=== PATIENT | male | born 1965 | race Caucasian/White ===

== ENCOUNTER 2021-07-13 13:23 | Emergency (ER) | payer OTHER, SELFPAY ==
[2021-07-13 13:32] VITALS: BP 119/64; PULSE 88; RESP 18; TEMP 37.7; O2SAT 99
--- NOTE | 2021-07-13 13:41 | ED_ITS ---
HPI - Fever General Chief Complaint: Fever Stated Complaint: Lethargic/Body Aches/Fever Time Seen by Provider: 07/13/21 13:31 Source: patient Mode of arrival: Ambulatory History of Present Illness HPI Narrative: Patient presents to the ED complaining of lethargy and fatigue for the past 7-10 days. He reports having loss of taste and smell over the last couple of days and states that he has body aches from head to toe. 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 He denies any shortness of breath cough congestion runny nose. He is not received his flu or COVID vaccine. 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 He has a history of ankylosing spondylitis and has is not currently seeing a neurologist. He states he does have some occasional leg symptoms and over the past week his back and legs have pain has increased. Related Data Allergies Allergy/AdvReac Type Severity Reaction Status Date / Time INGREDIENT: NKDA - NO KNOWN Allergy Unknown Uncoded 10/13/17 12:24 DRUG ALLERGIES Review of Systems Review of Systems ROS Unobtainable: All systems reviewed & are unremarkable except as noted in HPI and below Constitutional Constitutional: Reports body ache(s), Denies chills, Reports fatigue, Reports fever(s), Denies frequent falls, Denies lethargy and Denies weakness Eyes Eyes: Denies change in vision, Denies eye discharge, Denies irritation and Denies loss of vision ENT Ears, Nose, Mouth, and Throat: Denies change in voice, Denies dizziness, Denies neck pain, Denies sore throat and Denies throat swelling Cardiovascular Cardiovascular: Denies chest pain, Denies irregular heart rhythm, Denies lightheadedness, Denies palpitations, Denies dyspnea, Denies dyspnea on exertion and Denies orthopnea Respiratory Respiratory: Denies cough, Denies dyspnea, Denies dyspnea on exertion and Denies wheezing Gastrointestinal Gastrointestinal: Denies abdominal pain, Denies change in bowel habits, Denies diarrhea, Denies nausea and Denies vomiting Genitourinary Genitourinary: Denies hematuria, Denies flank pain, Denies urinary incontinence and Denies urinary urgency Musculoskeletal Musculoskeletal: Denies back pain, Denies muscle weakness, Denies neck pain, Denies numbness and Denies tingling Integumentary/Breasts Skin/Breast: Denies pruritus, Denies erythema, Denies rash and Denies wounds Neurologic Neurologic: Denies behavioral changes, Denies confusion, Denies dizziness, Denies frequent falls, Denies loss of vision, Denies numbness, Denies tingling and Denies weakness Psychiatric Psychiatric: Denies anxiety, Denies behavioral changes, Denies confusion, Denies depression, Denies homicidal ideation and Denies suicidal ideation Endocrine Endocrine: Reports fatigue, Denies flushing and Denies palpitations Hematologic/Lymphatic Hematologic/Lymphatic: Denies easy bruising Allergic/Immunologic Allergic/Immunologic: Denies urticaria, Denies throat swelling and Denies wheezing Exam Initial Vital Signs Initial Vital Signs: Vital Signs Temperature 99.9 F H 07/13/21 13:32 Pulse Rate 88 07/13/21 13:32 Respiratory Rate 18 07/13/21 13:32 Blood Pressure 119/64 07/13/21 13:32 Pulse Oximetry 99 07/13/21 13:32 Const General: cooperative and comfortable Orientation: Orientation [facility] Head: normal to inspection and normocephalic Nose: external nose normal Face and sinus: normal facial exam Mouth: oral mucosae normal Teeth and gingiva: dentition normal Throat: posterior oropharynx normal Eyes General: appearance normal, both eyes and all related structures Neck Neck: normal visual inspection Resp Effort & Inspection: normal respiratory effort and able to speak in complete sentences Auscultation: clear to auscultation bilaterally Cardio Rate: regular rate Rhythm: regular rhythm Skin General: no rashes or lesions noted Neuro General: patient alert, patient awake, patient oriented x3, normal light touch, pain and propioception, no meningeal signs, no focal motor deficits and CN's II- XI intact bilaterally Psych Appearance: grossly normal and well kempt Mental Status: mental status grossly normal Course Orders Ordered: ED Orders 07/13/21 13:55 COVID19 - ADMIT (INSTRUMENTATION TECHNICIAN swab/PCR) Stat Influenza A & B (PCR) Stat 07/13/21 14:45 CBC Auto Diff [Complete Blood Count AUTO DIFF] Stat CMP [Comprehensive Metabolic Panel] Stat Reevaluation(s) Reevaluation #1: Patient stable no new complaints resting comfortably Vital Signs Vital signs: Vital Signs - 8 hr 07/13/21 13:32 07/13/21 13:58 07/13/21 13:59 Temperature 99.9 F H Pulse Rate 88 86 86 Respiratory Rate 18 17 Blood Pressure 119/64 107/76 Pulse Oximetry 99 96 96 07/13/21 14:00 07/13/21 14:30 07/13/21 15:00 Temperature Pulse Rate 88 94 H 94 H Respiratory Rate 18 Blood Pressure 114/74 116/73 120/73 Pulse Oximetry 96 97 95 MDM - Fever Differential Diagnosis Differential diagnosis: Likely viral infection and influenza Lab Data Result diagrams: 07/13/21 14:45 07/13/21 14:45 Labs: Lab Results 07/13/21 07/13/21 07/13/21 Range/Units 13:55 14:45 14:45 WBC 4.8 (4.5-11.0) X10^3/uL RBC 5.46 (4.5-5.9) X10^6/uL Hgb 15.5 (13.5-17.5) g/dL Hct 45.0 (41-53) % MCV 82.3 (80-100) fL MCH 28.5 (26-34) PG MCHC 34.6 (30-36) % RDW 13.8 (11.6-14.8) % Plt Count 134 L (150-400) X10^3/uL Neut % (Auto) 71.7 (50-75) % Lymph % (Auto) 18.6 L (25-40) % [place] % (Auto) 9.0 (3-14) % Eos % (Auto) 0.2 L (2-4) % Baso % (Auto) 0.5 (0-2) % Neut # (Auto) 3500 (9021-0574) /uL Lymph # (Auto) 900 L (3515-9208) /uL [place] # (Auto) 400 (0-900) /uL Eos # (Auto) 0 (0-450) /uL Baso # (Auto) 0 (0-100) /uL Sodium 134 L (137-145) mmol/L Potassium 4.7 (3.4-5.1) mmol/L Chloride 99 (98-107) mmol/L Carbon Dioxide 32 (22-32) mmol/L BUN 15 (9-20) mg/dL Creatinine 0.92 (0.66-1.25) mg/dL Estimated GFR > 60.0 (>60) mL/min BUN/Creatinine Ratio 16.3 (6-22) Glucose 107 H (70-100) mg/dL Calcium 8.2 L (8.4-10.2) mg/dL Total Bilirubin 0.7 (0.2-1.3) mg/dL AST 37 (17-59) IU/L ALT 32 (<50) IU/L Alkaline Phosphatase 78 (38-126) U/L Total Protein 7.1 (6.3-8.2) g/dL Albumin 3.7 (3.5-5.0) g/dL Globulin 3.4 (1.7-4.1) g/dL Albumin/Globulin Ratio 1.1 (1.0-2.8) SARS-CoV-2 (PCR) Positive H (Negative) Influenza A (RT-PCR) Flu a negative (NEGATIVE) Influenza B (RT-PCR) Flu b negative (NEGATIVE) MDM Narrative Medical decision making narrative: Patient believed to have a viral syndrome COVID versus flu. Patient was found to be COVID positive patient is stable vital signs are stable and at this point patient is agreeable and okay to isolate at home. I discussed with the patient isolation protocol and measures appropriate for COVID isolation and all q uestions and concerns were addressed. Discharge Plan Departure Patient Disposition: Home Clinical Impression: COVID-19 Activity Restrictions/Additional Instructions: Patient needs to isolate at home until symptoms have resolved. Referrals: Miscellaneous,Doctor, [Primary Care Provider] -
[2021-07-13 13:58] VITALS: PULSE 86; RESP 17; O2SAT 96
[2021-07-13 13:59] VITALS: BP 107/76; PULSE 86; O2SAT 96
[2021-07-13 14:00] VITALS: BP 114/74; PULSE 88; O2SAT 96
[2021-07-13 14:30] VITALS: BP 116/73; PULSE 94; O2SAT 97
[2021-07-13 14:48] LABS: Influenza A - CEPHEID Flu A NEGATIVE (NEGATIVE); Influenza B - CEPHEID Flu B NEGATIVE (NEGATIVE)
[2021-07-13 14:58] LABS: Add Manual Diff / Slide Review NO; Basophils Absolute Auto 0 /uL (0-100); Basophils Percent Auto 0.5 % (0-2); Eosinophils Absolute Auto 0 /uL (0-450); Eosinophils Percent Auto 0.2 % (2-4); Hemoglobin 15.5 g/dL (13.5-17.5); Lymphocytes Absolute Auto 900 /uL (1100-4500); Lymphocytes Percent Auto 18.6 % (25-40); Mean Corpuscular HGB Conc 34.6 % (30-36); Mean Corpuscular Hemoglobin 28.5 PG (26-34); Mean Corpuscular Volume 82.3 fL (80-100); Monocytes Absolute Auto 400 /uL (0-900); Neutrophils Absolute Auto 3500 /uL (1500-7000); Neutrophils Percent Auto 71.7 % (50-75); Platelet Count 134 X10^3/uL (150-400); Red Blood Cell Count 5.46 X10^6/uL (4.5-5.9); Red Cell Distribution Width 13.8 % (11.6-14.8); White Blood Cell Count 4.8 X10^3/uL (4.5-11.0)
[2021-07-13 15:00] VITALS: BP 120/73; PULSE 94; RESP 18; O2SAT 95
[2021-07-13 15:05] LABS: COVID19 - ADMIT (NP swab/PCR) POSITIVE (Negative)
[2021-07-13 15:16] LABS: Alanine Aminotransferase 32 IU/L (<50); Albumin 3.7 g/dL (3.5-5.0); Albumin Globulin Ratio 1.1 (1.0-2.8); Alkaline Phosphatase 78 U/L (38-126); Aspartate Aminotransferase 37 IU/L (17-59); BUN Creatinine Ratio 16.3 (6-22); Bilirubin Total 0.7 mg/dL (0.2-1.3); Blood Urea Nitrogen 15 mg/dL (9-20); Calcium 8.2 mg/dL (8.4-10.2); Carbon Dioxide 32 mmol/L (22-32); Chloride 99 mmol/L (98-107); Estimated Glomerular Filt Rate > 60.0 mL/min (>60); Globulin 3.4 g/dL (1.7-4.1); Glucose 107 mg/dL (70-100); HEMOLYSIS 21 (0-50); Potassium 4.7 mmol/L (3.4-5.1); Sodium 134 mmol/L (137-145); Total Protein 7.1 g/dL (6.3-8.2)
== END 2021-07-13 15:49 | disposition home or self-care (01) ==
PROVIDERS: Emergency Provider Physician Assistant
DX: U07.1 COVID-19 (principal)
CPT/HCPCS: 36415; 80053; 85025; 87502; 87635; 99281; 99283; C9803

== ENCOUNTER 2022-06-09 14:18 | Emergency (ER) | payer SELFPAY ==
[2022-06-09] VITALS (10 sets, daily range): BP systolic 132–138; BP diastolic 80–100; PULSE 57–100; RESP 14–22; TEMP 36.3–37.1; O2SAT 76–98; BMI 21.4
[2022-06-09 15:28] LABS: Add Manual Diff / Slide Review NO; Basophils Absolute Auto 100 /uL (0-100); Basophils Percent Auto 0.8 % (0-2); Eosinophils Absolute Auto 100 /uL (0-450); Eosinophils Percent Auto 1.5 % (2-4); Hemoglobin 15.1 g/dL (13.5-17.5); Lymphocytes Absolute Auto 1800 /uL (1100-4500); Lymphocytes Percent Auto 21.4 % (25-40); Mean Corpuscular HGB Conc 33.6 % (30-36); Mean Corpuscular Hemoglobin 28.9 PG (26-34); Monocytes Absolute Auto 800 /uL (0-900); Monocytes Percent Auto 9.3 % (3-14); Neutrophils Absolute Auto 5700 /uL (1500-7000); Platelet Count 152 X10^3/uL (150-400); Red Blood Cell Count 5.23 X10^6/uL (4.5-5.9); Red Cell Distribution Width 16.5 % (11.6-14.8); White Blood Cell Count 8.5 X10^3/uL (4.5-11.0)
[2022-06-09 15:43] LABS: Alanine Aminotransferase 29 IU/L (<50); Albumin 3.8 g/dL (3.5-5.0); Alkaline Phosphatase 244 U/L (38-126); Aspartate Aminotransferase 37 IU/L (17-59); BUN Creatinine Ratio 16.7 (6-22); Bilirubin Total 1.2 mg/dL (0.2-1.3); Blood Urea Nitrogen 16 mg/dL (9-20); Calcium 8.9 mg/dL (8.4-10.2); Carbon Dioxide 27 mmol/L (22-32); Chloride 102 mmol/L (98-107); Estimated Glomerular Filt Rate > 60 mL/min (>60); Globulin 3.9 g/dL (1.7-4.1); Glucose 83 mg/dL (70-100); HEMOLYSIS < 15 (0-50); Lipase 78 U/L (23-300); Potassium 4.7 mmol/L (3.4-5.1); Sodium 138 mmol/L (137-145); Total Protein 7.7 g/dL (6.3-8.2)
--- NOTE | 2022-06-09 17:54 | ED_ITS ---
HPI - Abdominal Pain <Brittni Borrego PA-C - Last Filed: 06/09/22 21:08> General Chief Complaint: Abdominal Pain Stated Complaint: Stomach Issues Time Seen by Provider: 06/09/22 16:43 Source: patient Mode of arrival: Ambulatory History of Present Illness HPI narrative: 57-year-old male with no reported past medical history presents to the ED with 2 months of intermittent abdominal pain. Patient states that over the past few days, the pain has intensified, which is why he came into the ED today. Patient describes the pain as being in his lower abdomen, aggravated by eating. No alleviating factors identified. Patient's pain level in the ED is 5/10. Patient also endorses that he is had more bowel movements on a daily basis, states he has 4-5 bowel movements daily, when he used to have 1 or 2. Patient denies fever, chills, chest pain, shortness of breath, cough, nausea, vomiting, dysuria, diarrhea, constipation. Patient denies melena, hematochezia. Patient denies alcohol use, recreational drug use. Patient denies smoking. Patient endorses occasional marijuana use. Prior abdominal surgeries include appendectomy. Related Data Previous Rx's Medication Instructions Recorded cefpodoxime 200 mg tablet 200 mg PO BID 10 days #20 tabs 06/09/22 Allergies Allergy/AdvReac Type Severity Reaction Status Date / Time No Known Drug Allergies Allergy Verified 06/09/22 14:57 Review of Systems <Brittni Borrego PA-C - Last Filed: 06/09/22 21:08> Review of Systems ROS Unobtainable: All systems reviewed & are unremarkable except as noted in HPI and below Constitutional Constitutional: Denies chills, Denies fatigue, Denies fever(s), Denies frequent falls, Denies lethargy and Denies weakness Eyes Eyes: Denies change in vision, Denies eye discharge, Denies irritation and Denies loss of vision ENT Ears, Nose, Mouth, and Throat: Denies change in voice, Denies dizziness, Denies neck pain, Denies sore throat and Denies throat swelling Cardiovascular Cardiovascular: Denies chest pain, Denies irregular heart rhythm, Denies lightheadedness, Denies palpitations, Denies dyspnea, Denies dyspnea on exertion and Denies orthopnea Respiratory Respiratory: Denies cough, Denies dyspnea, Denies dyspnea on exertion and Denies wheezing Gastrointestinal Gastrointestinal: Reports abdominal pain, Reports change in bowel habits, Denies diarrhea, Denies nausea and Denies vomiting Genitourinary Genitourinary: Denies hematuria, Denies flank pain, Denies urinary incontinence and Denies urinary urgency Musculoskeletal Musculoskeletal: Denies back pain, Denies muscle weakness, Denies neck pain, Denies numbness and Denies tingling Integumentary/Breasts Skin/Breast: Denies pruritus, Denies erythema, Denies rash and Denies wounds Neurologic Neurologic: Denies behavioral changes, Denies confusion, Denies dizziness, Denies frequent falls, Denies loss of vision, Denies numbness, Denies tingling and Denies weakness Psychiatric Psychiatric: Denies anxiety, Denies behavioral changes, Denies confusion, Denies depression, Denies homicidal ideation and Denies suicidal ideation Endocrine Endocrine: Denies fatigue, Denies flushing and Denies palpitations Hematologic/Lymphatic Hematologic/Lymphatic: Denies easy bruising Allergic/Immunologic Allergic/Immunologic: Denies urticaria, Denies throat swelling and Denies wheezing Patient History <Brittni Borrego PA-C - Last Filed: 06/09/22 21:08> Social History Smoking Status: Never smoker Smoking Status: Never smoker Substance Use Type: marijuana Exam <Brittni Borrego PA-C - Last Filed: 06/09/22 21:08> Narrative Exam Narrative: Const General:?cooperative, healthy appearing and comfortable [facility] Head:?normal to inspection Ears:?hearing grossly normal bilaterally Nose:?external nose normal Face and sinus:?normal facial exam and sinuses nontender Mouth:?oral mucosae normal Throat:?posterior oropharynx normal Eyes General:?appearance normal, both eyes and all related structures Neck Neck:?normal visual inspection and no lymphadenopathy noted Resp Effort & Inspection:?normal respiratory effort Auscultation:?clear to auscultation bilaterally Cardio Rate:?regular rate Rhythm:?regular rhythm GI Abdomen is soft, nondistended. Abdomen is tender to palpation in the left lower quadrant and periumbilical area. Neuro General:?patient alert, patient awake and patient oriented x3 Initial Vital Signs Initial Vital Signs: Vital Signs Temperature 98.8 F 06/09/22 14:58 Pulse Rate 91 H 06/09/22 14:58 Respiratory Rate 16 06/09/22 14:58 Blood Pressure 132/90 06/09/22 14:58 Pulse Oximetry 98 06/09/22 14:58 Oxygen Delivery Method 06/09/22 14:58 <Genet Faust MD - Last Filed: 06/10/22 18:11> Initial Vital Signs Initial Vital Signs: Vital Signs Temperature 98.8 F 06/09/22 14:58 Pulse Rate 91 H 06/09/22 14:58 Respiratory Rate 16 06/09/22 14:58 Blood Pressure 132/90 06/09/22 14:58 Pulse Oximetry 98 06/09/22 14:58 Oxygen Delivery Method 06/09/22 14:58 Course <Brittni Borrego PA-C - Last Filed: 06/09/22 21:08> Orders Ordered: Discontinued Medications Ketorolac Tromethamine (Ketorolac 30 Mg/Ml Vial) 15 mg IV NOW ONE Stop: 06/09/22 18:43 Last Admin: 06/09/22 19:08 Dose: 15 mg Documented By: DEEPALI Vital Signs Vital signs: Vital Signs - 8 hr 06/09/22 14:58 06/09/22 17:54 06/09/22 17:56 Temperature 98.8 F Pulse Rate 91 H 57 L Respiratory Rate 16 Blood Pressure 132/90 134/100 H Pulse Oximetry 98 76 L Oxygen Delivery Method Room Air 06/09/22 17:56 06/09/22 18:00 06/09/22 18:00 Temperature Pulse Rate 100 H 96 H Respiratory Rate 20 17 Blood Pressure 133/95 H Pulse Oximetry 80 L 79 L Oxygen Delivery Method 06/09/22 18:30 06/09/22 18:30 06/09/22 19:00 Temperature Pulse Rate 95 H 88 Respiratory Rate 14 19 Blood Pressure 138/96 H Pulse Oximetry 96 97 Oxygen Delivery Method 06/09/22 19:30 Temperature Pulse Rate 92 H Respiratory Rate 19 Blood Pressure Pulse Oximetry 97 Oxygen Delivery Method <Genet Faust MD - Last Filed: 06/10/22 18:11> Orders Ordered: Discontinued Medications Ketorolac Tromethamine (Ketorolac 30 Mg/Ml Vial) 15 mg IV NOW ONE Stop: 06/09/22 18:43 Last Admin: 06/09/22 19:08 Dose: 15 mg Documented By: DEEPALI Vital Signs Vital signs: Vital Signs - 8 hr 06/09/22 14:58 06/09/22 17:54 06/09/22 17:56 Temperature 98.8 F Pulse Rate 91 H 57 L Respiratory Rate 16 Blood Pressure 132/90 134/100 H Pulse Oximetry 98 76 L Oxygen Delivery Method Room Air 06/09/22 17:56 06/09/22 18:00 06/09/22 18:00 Temperature Pulse Rate 100 H 96 H Respiratory Rate 20 17 Blood Pressure 133/95 H Pulse Oximetry 80 L 79 L Oxygen Delivery Method 06/09/22 18:30 06/09/22 18:30 06/09/22 19:00 Temperature Pulse Rate 95 H 88 Respiratory Rate 14 19 Blood Pressure 138/96 H Pulse Oximetry 96 97 Oxygen Delivery Method 06/09/22 19:30 Temperature Pulse Rate 92 H Respiratory Rate 19 Blood Pressure Pulse Oximetry 97 Oxygen Delivery Method MDM - Abdominal Pain <Hyma TAVIA Borrego - Last Filed: 06/09/22 21:08> Lab Data Result diagrams: 06/09/22 15:15 06/09/22 15:15 Labs: Lab Results 06/09/22 06/09/22 Range/Units 15:15 15:15 WBC 8.5 (4.5-11.0) X10^3/uL RBC 5.23 (4.5-5.9) X10^6/uL Hgb 15.1 (13.5-17.5) g/dL Hct 45.0 (41-53) % MCV 86.0 (80-100) fL MCH 28.9 (26-34) PG MCHC 33.6 (30-36) % RDW 16.5 H (11.6-14.8) % Plt Count 152 (150-400) X10^3/uL Neut % (Auto) 67.0 (50-75) % Lymph % (Auto) 21.4 L (25-40) % [place] % (Auto) 9.3 (3-14) % Eos % (Auto) 1.5 L (2-4) % Baso % (Auto) 0.8 (0-2) % Neut # (Auto) 5700 (5494-0831) /uL Lymph # (Auto) 1800 (4781-5748) /uL [place] # (Auto) 800 (0-900) /uL Eos # (Auto) 100 (0-450) /uL Baso # (Auto) 100 (0-100) /uL Sodium 138 (137-145) mmol/L Potassium 4.7 (3.4-5.1) mmol/L Chloride 102 (98-107) mmol/L Carbon Dioxide 27 (22-32) mmol/L BUN 16 (9-20) mg/dL Creatinine 0.96 (0.66-1.25) mg/dL Estimated GFR > 60 (>60) mL/min BUN/Creatinine Ratio 16.7 (6-22) Glucose 83 (70-100) mg/dL Calcium 8.9 (8.4-10.2) mg/dL Total Bilirubin 1.2 (0.2-1.3) mg/dL AST 37 (17-59) IU/L ALT 29 (<50) IU/L Alkaline Phosphatase 244 H (38-126) U/L Total Protein 7.7 (6.3-8.2) g/dL Albumin 3.8 (3.5-5.0) g/dL Globulin 3.9 (1.7-4.1) g/dL Albumin/Globulin Ratio 1.0 (1.0-2.8) Lipase 78 (23-300) U/L Point of care testing: Urine Dip Bedside Urine Glucose Negative Bedside Urine Bilirubin - Negative Bedside Urine Ketone - Negative Urine Specific [place] 1.010 Bedside Urine Occult Blood - Negative Bedside Urine pH 7.5 Bedside Urine Protein + 30 Bedside Urine Urobilinogen - Negative Bedside Urine Nitrite - Negative Bedside Urine Leukocytes ++ [address] scan - abdomen/pelvis: Radiologist's Impression: PROCEDURE:? CT ABDOMEN PELVIS W CON ? INDICATIONS:? Abd pain ? TECHNIQUE:? After the administration of IV contrast, axial sections were acquired from the lung bases to the pubic symphysis.? Coronal and sagittal reformats were performed.? For radiation dose reduction, the following was used:? automated exposure control, adjustment of mA and/or kV according to patient size. ? COMPARISON:? [facility], CT, ABDOMEN/PELVIS WITH CONTRAST, 07/22/2009, 6:00. ? FINDINGS:? Image quality:? Excellent.? ? Lung bases:? There is mild dependent atelectasis.? ? Heart:? Heart is normal in size. ? ? ABDOMEN: Liver:? There is hypoattenuation of the liver consistent with fatty infiltrat ion. Gallbladder:? Within normal limits without calcified gallstones.? ? Biliary ducts:? No biliary ductal dilatation.? ? Pancreas:? Unremarkable.? ? Spleen:? Normal in size.? ? Adrenal Glands:? No adrenal nodules.? ? Kidneys and Ureters:? No hydronephrosis.? ? ? Stomach and Bowel:? Stomach, small bowel loops, and colon are normal in caliber and wall thickness.? No pericecal inflammatory changes to suggest appendicitis.? Appendix is likely surgically absent.? There is colonic diverticulosis without acute diverticulitis.? ? Peritoneum:? No abnormal intraperitoneal fluid.? No free air.? ? Ventral Wall: ? No hernia.? Abdominal Nodes:? No retroperitoneal or mesenteric adenopathy by size criteria.? Vessels:? Aorta and inferior vena cava are normal in size.? ? PELVIS: Pelvic Organs:? Unremarkable.? ? Bladder:? There is marked distention of the urinary bladder.? There is mild bladder wall thickening and trabeculation inferiorly.? ? Pelvic Nodes: No enlarged lymph nodes.? Miscellaneous: No inguinal hernias are seen.? There is a small amount of fluid is demonstrated within the right hemiscrotum compatible with a small hydrocele.? ? ? Bones:? Visualized osseous structures demonstrate no suspicious focal lesions. ? IMPRESSION:? ? 1.? Marked distention of the urinary bladder with mild bladder wall thickening and trabeculation inferiorly.? The findings suggests urinary retention or sequelae of bladder outlet obstruction. ? 2. Colonic diverticulosis without acute diverticulitis.? ? 3. Hepatic? steatosis. ? ?Dictated by: Amrit Dawn M.D. on 06/09/2022 at 20:13 ? ? Approved by: Amrit Dawn M.D. on 06/09/2022 at 20:28 ? MDM Narrative Medical decision making narrative: 57-year-old male with no reported past medical history presents to the ED with 2 months of intermittent abdominal pain. Concern for intra-abdominal pathology including SBO, diverticulitis, colitis, IBS versus other. Will obtain labs, la ctate, lipase, CT abdomen pelvis. Will treat pain with ketorolac. Pain improved with ketorolac. Labs within normal limits. CT shows marked distention of the urinary bladder, suggestive of urinary retention or bladder outlet obstruction. Bladder distended to 390 on scan prior to voiding. Patient was able to void to 280, which is reassuring for no significant urinary retention. UA was positive for a UTI. Treated with abx. Recommend follow-up with Urology, PCP. Bowel regimen discussed. ED return precautions discussed with patient. Patient verbalized understanding. <Genet Faust MD - Last Filed: 06/10/22 18:11> Lab Data Labs: Lab Results 06/09/22 06/09/22 Range/Units 15:15 15:15 WBC 8.5 (4.5-11.0) X10^3/uL RBC 5.23 (4.5-5.9) X10^6/uL Hgb 15.1 (13.5-17.5) g/dL Hct 45.0 (41-53) % MCV 86.0 (80-100) fL MCH 28.9 (26-34) PG MCHC 33.6 (30-36) % RDW 16.5 H (11.6-14.8) % Plt Count 152 (150-400) X10^3/uL Neut % (Auto) 67.0 (50-75) % Lymph % (Auto) 21.4 L (25-40) % [place] % (Auto) 9.3 (3-14) % Eos % (Auto) 1.5 L (2-4) % Baso % (Auto) 0.8 (0-2) % Neut # (Auto) 5700 (9583-3885) /uL Lymph # (Auto) 1800 (5419-0343) /uL [place] # (Auto) 800 (0-900) /uL Eos # (Auto) 100 (0-450) /uL Baso # (Auto) 100 (0-100) /uL Sodium 138 (137-145) mmol/L Potassium 4.7 (3.4-5.1) mmol/L Chloride 102 (98-107) mmol/L Carbon Dioxide 27 (22-32) mmol/L BUN 16 (9-20) mg/dL Creatinine 0.96 (0.66-1.25) mg/dL Estimated GFR > 60 (>60) mL/min BUN/Creatinine Ratio 16.7 (6-22) Glucose 83 (70-100) mg/dL Calcium 8.9 (8.4-10.2) mg/dL Total Bilirubin 1.2 (0.2-1.3) mg/dL AST 37 (17-59) IU/L ALT 29 (<50) IU/L Alkaline Phosphatase 244 H (38-126) U/L Total Protein 7.7 (6.3-8.2) g/dL Albumin 3.8 (3.5-5.0) g/dL Globulin 3.9 (1.7-4.1) g/dL Albumin/Globulin Ratio 1.0 (1.0-2.8) Lipase 78 (23-300) U/L Point of care testing: Urine Dip Bedside Urine Glucose Negative Bedside Urine Bilirubin - Negative Bedside Urine Ketone - Negative Urine Specific [place] 1.010 Bedside Urine Occult Blood - Negative Bedside Urine pH 7.5 Bedside Urine Protein + 30 Bedside Urine Urobilinogen - Negative Bedside Urine Nitrite - Negative Bedside Urine Leukocytes ++ 125 Esterase Discharge Plan Departure Patient Disposition: Home Clinical Impression: Abdominal pain Instructions: DI for Abdominal Pain-Adult Activity Restrictions/Additional Instructions: You were evaluated in the ED today for abdominal pain. Your labs, CT did not show any acute findings that might explain your symptoms. Your bladder did appear distended in the CT, however you were able to urinate and really much of that. You also have a urinary tract infection for which you were getting antibiotics. Please follow-up with your primary care provider as soon as possible. Return to the ED if your symptoms worsen. Prescriptions: New cefpodoxime 200 mg tablet 200 mg PO BID 10 Days Qty: 20 0RF Rx Instructions: must administer with a meal/food Referrals: Nicki,DoctorMD [Primary Care Provider] - Visit Report Forms: Patient Portal/API <Genet Faust MD - Last Filed: 06/10/22 18:11> Cosign ED Attending Loreeature Attestation: I was immediately available in the department for consultation throughout this patient's visit. I agree with documentation as above. Genet Faust MD
--- NOTE | 2022-06-09 18:42 | DI.CT.S_ITS ---
PROCEDURE: CT ABDOMEN PELVIS W CON INDICATIONS: Abd pain TECHNIQUE: After the administration of IV contrast, axial sections were acquired from the lung bases to the pubic symphysis. Coronal and sagittal reformats were performed. For radiation dose reduction, the following was used: automated exposure control, adjustment of mA and/or kV according to patient size. COMPARISON: [facility], CT, ABDOMEN/PELVIS WITH CONTRAST, 07/22/2009, 6:00. FINDINGS: Image quality: Excellent. Lung bases: There is mild dependent atelectasis. Heart: Heart is normal in size. ABDOMEN: Liver: There is hypoattenuation of the liver consistent with fatty infiltration. Gallbladder: Within normal limits without calcified gallstones. Biliary ducts: No biliary ductal dilatation. Pancreas: Unremarkable. Spleen: Normal in size. Adrenal Glands: No adrenal nodules. Kidneys and Ureters: No hydronephrosis. Stomach and Bowel: Stomach, small bowel loops, and colon are normal in caliber and wall thickness. No pericecal inflammatory changes to suggest appendicitis. Appendix is likely surgically absent. There is colonic diverticulosis without acute diverticulitis. Peritoneum: No abnormal intraperitoneal fluid. No free air. Ventral Wall: No hernia. Abdominal Nodes: No retroperitoneal or mesenteric adenopathy by size criteria. Vessels: Aorta and inferior vena cava are normal in size. PELVIS: Pelvic Organs: Unremarkable. Bladder: There is marked distention of the urinary bladder. There is mild bladder wall thickening and trabeculation inferiorly. Pelvic Nodes: No enlarged lymph nodes. Miscellaneous: No inguinal hernias are seen. There is a small amount of fluid is demonstrated within the right hemiscrotum compatible with a small hydrocele. Bones: Visualized osseous structures demonstrate no suspicious focal lesions. IMPRESSION: 1. Marked distention of the urinary bladder with mild bladder wall thickening and trabeculation inferiorly. The findings suggests urinary retention or sequelae of bladder outlet obstruction. 2. Colonic diverticulosis without acute diverticulitis. 3. Hepatic steatosis. Dictated by: Amrit Dawn M.D. on 06/09/2022 at 20:13 Approved by: Amrit Dawn M.D. on 06/09/2022 at 20:28
[2022-06-09] MEDS: KETOROLAC 30 MG/ML VIAL 15 MG IV (19:08)
== END 2022-06-09 21:13 | disposition home or self-care (01) ==
PROVIDERS: Emergency Medicine; Emergency Provider Student in an Organized Health Care Education/Training Program
DX: R10.30 Lower abdominal pain, unspecified (principal)
CPT/HCPCS: 74177; 80053; 81003; 83690; 85025; 96374; 99283; 99284; J1885; Q9967